=== PATIENT | female | born 1960 | race Two or more races ===

== ENCOUNTER 2021-04-10 05:48 | Day surgery (SDC) | payer OTHER ==
[~2021-04-10 05:48] MED LIST: CRESTOR10 MG PO; FOSAMAX70 MG PO; SYNTHROID50 MCG PO
[2021-04-10] MEDS ORDERED: PERCOCET 5-3251 EACH PO (09:02)
== END 2021-04-10 13:20 | disposition home or self-care (01) ==
LOC: CIR.AMB 05:48
PROVIDERS: ATTEND Surgery
DX: K64.8 Other hemorrhoids (principal)